=== PATIENT | female | born 1935 | race Caucasian/White ===

== ENCOUNTER 2022-10-11 08:00 | Outpatient (RCR) | payer MEDICARE, SELFPAY ==
--- NOTE | 2022-09-18 09:17 | OPREHPOC ---
Outpatient Therapy Plan of Care This is a Multidisciplinary Plan of Care that may contain components documented by all disciplines (PT, OT, and ST.) PT Problem 1 PT Problem #1 Knowledge Deficit PT Goal 1 Goal 1* indep with HEP 2* correct body mechanics/position with exercises PT Problem 2 PT Problem #2 Pain PT Goal 1 Goal 1* pt report pain at worst of 6/10 2* radicular pain into LE's to knees at worst 3* Oswestry self assessment functional score of 30 % limitation PT Problem 3 PT Problem #3 Impaired Flexibility PT Goal 1 Goal increase hamstring length with supine SLR to 55' 1* R 2* L 3* no pain increase with supine L hip IR PT Problem 4 PT Problem #4 Impaired Strength PT Goal 1 Goal 1* pt perform 45 minutes of aquatic exercises 2* pt perform R and L hip strengthening mat exercises 20 reps 3* 2 minute walking test distance of 450'
--- NOTE | 2022-09-18 09:17 | PTOPEVAL1 ---
Assessment and note entered by Radha Grace, PT Evaluation Information Assessment Status Evaluation Diagnosis lumbar radiculopathy Onset about 1 year ago Subjective Information have chronic back pain, had injection recently into SI joint and it helped her pain; said she was not a candidate for back surgery due to her age; had PT for back long time ago; does not have a fitness center membership; ACTIVITY: live alone, daughter assists PRN with home cleaning; do not use assistive device- but have not used; does not drive; no falls in the past 6 months; GOAL: quit hurting down legs; Reported Pain Level Pain Score Self Report Additional Pain Score Comments pain range in the past week 3-10/10; low back pain, into R & L posterior leg to feet, L stronger pain than R; intermittent into LE's; increase pain: sitting 15- 20 minutes decrease pain: change positions, walking, move legs do standing leg exercises, ones from when had knee surgery; do not use heat/ice at home lately; take gabapentin at night for sleeping; pain in back does not limit sleeping; Assessment PT Clinical Summary Babs has the diagnosis of lumbar radiculopathy. She has a history of chronic back pain, with recent increase and radicular into both legs. She is active, lives alone and does not use an assistive device. With the Oswestry self assessment functional score of 38% limitation in activity. With the evaluation, she has decreased trunk and hip abduction strength, with decreased flexibility of both hamstring muscles; pain increase with supine L hip IR; 2 minute walking test distance of 375'; she is very motivated to stay active and decrease her pain. Skilled PT services are indicated for modalities to decrease pain; therapeutic exercises and activities in water and on land to increase strength and flexibility with education for home exercises and pain control. Plan of Care Interventions Radha
--- NOTE | 2022-10-11 08:40 | PTOPDC ---
Assessment and note entered by Radha Grace, PT Evaluation Information Assessment Status Discharge Diagnosis lumbar radiculopathy Onset about 1 year ago Subjective Information legs are stronger, walking better, more confident with walking; bought the wheeled walker, but not need it; have been walking more with daughter; going out and going places more; Reported Pain Level Pain Score Self Report Additional Pain Score Comments pain in the past week 0-10/10; shoots down leg to toes, to 10 when bend forward, when stretch out and prop up leg, it goes away; Assessment PT Clinical Summary Babs has received 9 PT sessions. She and her daughter report that they are pleased with her progress and how her walking has improved. Compared to the initial evaluation she has improved in all areas, except pain rating at the worst and intermittent radicular pain to feet; self assessment Oswestry improved from 38% to 20% limitation in activity level; increased flexibility of hamstrings, strength of trunk and legs; no pain with supine L hip motions; walking distance with 2 minute walking test increased 35' education completed for home exercises for land and water. The goals were partially met. Discharge PT services. She is to continue with her home exercise program. Plan of Care PT Services Indicated No
== END 2022-10-11 14:09 | disposition home or self-care (01) ==
LOC: ANHPT 08:00
DX: M51.36 Other intervertebral disc degeneration, lumbar region (principal); M47.26 Other spondylosis with radiculopathy, lumbar region
CPT/HCPCS: 97110; 97112; 97113; 97116; 97161; 97530